=== PATIENT | female | born 1985 | race Hispanic/Latino ===

== ENCOUNTER 2024-10-04 13:06 | Emergency (ER) | payer SELFPAY ==
[~2024-10-04] VITALS: Ht 157.5 cm; Wt 95.3 kg
[2024-10-04 13:17] VITALS: TEMP 98.5
[2024-10-04] MEDS ORDERED: SODIUM CHLORIDE FLUSH 10 ML SYR IV PRN (13:30)
[2024-10-04 13:48] LABS: BASOPHILS % 0.2 % (0.0-1.0); EOSINOPHILS % 0.7 % (0.0-6.0); LYMPHOCYTES % 27.1 % (18.0-39.1); MONOCYTES % 7.6 % (4.4-11.3); NEUTROPHILS % 64.3 % (38.7-80.0); RED CELL DISTRIBUTION WIDTH 13.1 % (11.7-14.4)
[2024-10-04 13:55] LABS: LEUKOCYTE ESTERASE ,URINE NEGATIVE (NEGATIVE); PROTEIN,URINE DIPSTICK NEGATIVE (NEGATIVE); URINE UROBILINOGEN 0.2 mg/dL (0.2 - 1)
[2024-10-04 14:01] LABS: EST GLOMERULAR FILTRATION RATE 109.0 ML/MIN (>=60)
[2024-10-04 14:03] LABS: WBC,URINE (MAN) 0-5 /HPF (0-5)
[2024-10-04 14:04] LABS: EPITHELIAL CELLS,URINE MANY /LPF
[2024-10-04 14:55] VITALS: PULSE 72; RESP 14; O2SAT 100
== END 2024-10-04 15:00 | disposition home or self-care (01) ==
LOC: ER 13:38
DX: R06.02 Shortness of breath (principal); R07.89 Other chest pain; Z91.148 Patient's other noncompliance with medication regimen for other reason; I10 Essential (primary) hypertension
CPT/HCPCS: 36415; 71046; 80053; 81001; 84484; 85025; 93005; 99283